=== PATIENT | male | born 1980 | race Caucasian/White ===

== ENCOUNTER 2018-05-30 04:30 | Inpatient (IN) | payer OTHER ==
[2018-05-29 11:57] VITALS: BP 126/70
--- NOTE | 2018-05-29 12:14 | PCM.EKG ---
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
[2018-05-29 12:31] LABS: BASOPHIL # 0.2 10^3/uL (0.0-0.1); BASOPHIL % 1.5 % (0.0-0.2); EOSINOPHIL # 2.4 10^3/uL (0.0-0.2); EOSINOPHIL % 20.8 % (0.0-5.0); HEMOGLOBIN 16.9 g/dL (13.9-16.3); LYMPHOCYTES # 3.2 10^3/uL (1.0-4.8); LYMPHOCYTES % 27.7 % (24.0-44.0); MEAN CELL HGB 29.2 pg (26-34); MEAN CELL HGB CONCENTRATION 34.2 g/dL (33-37); MEAN CORP VOLUME 85.3 fL (78-100); MEAN PLATELET VOLUME 8.7 fL (7.8-11.0); MONOCYTES # 0.6 10^3/uL (0.3-0.8); MONOCYTES % 5.5 % (5.0-12.0); NEUTROPHIL # 5.1 10^3/uL (1.8-7.7); NEUTROPHILS % 44.1 % (41.0-85.0); RED CELL DISTRIBUTION WIDTH 15.5 % (11.5-14.5); WHITE BLOOD CELL 11.4 10^3/uL (4.5-11.0)
[2018-05-29 12:55] LABS: CALCIUM 9.6 mg/dL (8.4-10.5); CARBON DIOXIDE 22.9 mmol/L (20.0-32)
[2018-05-29 15:16] LABS: BASOPHIL 3 % (0-2); DIFFERENTIAL COMMENT NORMAL; EOSINOPHIL 25 % (1-4); LYMPHOCYTE 28 % (25-36); MONOCYTE 3 % (3-9); SEGMENTED NEUTROPHILS 41 % (31-76)
[~2018-05-30] VITALS: Ht 176 cm; Wt 93.9 kg
[2018-05-30] VITALS (10 sets, daily range): BP systolic 102–137; BP diastolic 54–84
[~2018-05-30 04:30] MED LIST: CALC-76 PO; GABA300C10 PO; MULT1TAB52 PO; TRAM-47 PO; [UNRECOGNIZED DRUG - CODE] PO
[2018-05-30] MEDS ORDERED: ANCEF ONE (05:11)
[2018-05-30] MEDS ORDERED: ANCEF 2 GM/D5W 50ML 50 ML IV ONE (05:11)
[2018-05-30] MEDS ORDERED: LACTATED RINGERS 1,000 ML ONE ×2 (05:11→07:22)
[2018-05-30] MEDS ORDERED: NS 100ML 100 ML IV ONE (05:11)
[2018-05-30] MEDS: LACTATED RINGERS 1,000 ML IV SCH ×2 (06:22→19:59)
[2018-05-30] MEDS ORDERED: NAROPIN 0.2% 40 MG/20 ML VIAL ONE (06:56)
[2018-05-30] MEDS ORDERED: DECADRON ONE (06:56)
[2018-05-30] MEDS ORDERED: PRECEDEX IV ONE (06:57)
[2018-05-30] MEDS ORDERED: VERSED ONE (06:57)
[2018-05-30] MEDS ORDERED: LIDOCAINE 2% VIAL ONE ×2 (06:57→07:20)
[2018-05-30] MEDS ORDERED: XYLOCAINE 2%-EPI 1:100,000 ONE (07:19)
[2018-05-30] MEDS ORDERED: SODIUM CHLORIDE IR ONE (07:19)
[2018-05-30] MEDS ORDERED: ZEMURON IV ONE (07:21)
[2018-05-30] MEDS ORDERED: QUELICIN ONE (07:21)
[2018-05-30] MEDS ORDERED: ZOFRAN ONE (07:21)
[2018-05-30] MEDS ORDERED: NEOSTIGMINE ONE (07:21)
[2018-05-30] MEDS ORDERED: DILAUDID ONE (07:21)
[2018-05-30] MEDS ORDERED: SUBLIMAZE ONE (07:21)
[2018-05-30] MEDS ORDERED: DIPRIVAN IV ONE (07:22)
[2018-05-30] MEDS ORDERED: THROMBIN-JMI TP ONE (09:28)
--- NOTE | 2018-05-30 10:43 | HPH ---
ADMIT DATE: 05/30/2018 CHIEF COMPLAINT: Painful right leg. HISTORY OF PRESENT ILLNESS: The patient is a 37-year-old white male who suffered a closed right femur fracture approximately a year ago while working in [place]. He had open reduction and internal fixation with a retrograde femoral nail locked at that time. The patient has continued to complain of pain about the fracture site despite aggressive therapy, weightbearing. Approximately 4-5 months ago, we removed the proximal interlocking screw; however, this did not allow the fracture to heal. He continues to complain of pain with weightbearing about the fracture site. He still smokes about a half a pack of cigarettes a day despite antismoking counseling. He has full range of motion about the knee. 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 He is admitted today for bone grafting of the right femur nonunion. MEDICATIONS: Include naproxen as well as gabapentin. PAST SURGICAL HISTORY: As above. ALLERGIES: States that he is allergic to IBUPROFEN. SOCIAL HISTORY: He smokes about a half a pack of cigarettes a day, drinks on an occasional basis. FAMILY HISTORY: Positive for diabetes, cancer and hypertension. REVIEW OF SYSTEMS: Negative for chest pain, shortness of breath, nausea, vomiting, melena, hematochezia, dysuria, hematuria, fever, chills and weight loss. PHYSICAL EXAMINATION: GENERAL: Shows that he is 5 feet 10 inches, 225 pounds, healthy male, in no acute distress. HEENT: Within normal limits. CHEST: Clear to auscultation. HEART: Regular rate and rhythm. EXTREMITIES: Right femur has a healed incision distally about the knee. His knee goes out into full extension, has 120 degrees of flexion. He has tenderness about the fracture site to palpation. There is no motion at the fracture site with varus and valgus stressing. NEUROLOGIC: He is awake and alert. He is oriented x 3. Cranial nerves 2-12 grossly intact. He has 5/5 strength in all muscle groups of both lower and upper extremities, bilaterally symmetric. IMAGING STUDIES: His x-rays show that he has hypertrophic nonunion with an intramedullary femoral nail that is locked distally in place. ASSESSMENT: Hypertrophic nonunion right femur fracture. PLAN: The patient admitted for bone grafting of the right femur fracture with autograft from the right iliac crest. The risks and hazards of the procedure have been discussed with the patient. He understands the risk involved and wants to proceed as planned. Darek Swenson MD DR: ITALO/gena JOB# [id number]
--- NOTE | 2018-05-30 10:54 | OPH ---
DATE OF SURGERY: 05/30/2018 PREOPERATIVE DIAGNOSIS: Nonunion, right femur fracture. POSTOPERATIVE DIAGNOSIS: Nonunion, right femur fracture. OPERATIVE PROCEDURE: Bone grafting, right femur nonunion. SURGEON: Darek Swenson MD ANESTHESIA: General endotracheal. BLOOD LOSS: 400 mL. DRAINS: None. DESCRIPTION OF INDICATIONS: The patient is a 37-year-old male. He suffered a closed displaced fracture of the distal third of his right femur approximately a year ago while working in [place]. He had ORIF performed with the retrograde femoral nail in [place] at that time . The patient continues to complain of pain about the fracture site despite aggressive physical therapy, weightbearing and other modalities. He has had his proximal interlocking screw removed about 5 months ago. His x-rays show that he has a hypertrophic nonunion about the right distal femur. The patient was taken to the operating room today for bone grafting with autograft from the right iliac crest of the right femoral nonunion. DESCRIPTION OF PROCEDURE: The patient was placed on the operating table in the supine position. A general endotracheal anesthetic was induced without difficulty. The patient was then placed in the left lateral decubitus position. The right lower extremity including the iliac crest was then sterilely prepped and draped. Then the patient had the fracture site identified with the C-arm. Incision was taken laterally through the skin and subcutaneous tissue. The bleeding was controlled with cautery. The IT band was opened in line with the skin incision. The muscle belly was reflected anteriorly and released off the posterior aspect of the femur. The fracture nonunion site was identified. We used a 0.5 inch curved osteotome proximal and distal to the fracture and did extensive feathering of the periosteum laterally, posteriorly and anteriorly. There were no signs of infection. We then irrigated the wound and packed it with a wet sponge and proceeded to harvest iliac bone crest. The patient had an incision made about the anterior iliac crest. The incision was taken through the skin and subcutaneous tissues. The periosteum was then split and elevated over the outer table of the ilium. Using straight and curved osteotomes, we harvested some unicortical bone graft from the outer table of his iliac crest. Once a sufficient amount of bone graft was harvested, then the wounds were copiously irrigated. We put some thrombin-soaked Gelfoam down into the graft site and then closed the soft tissue with 1 Vicryl in interrupted [id number] manner. The subcutaneous was closed with 2-0 Monocryl in an interrupted manner and the skin was closed with oscar. We then returned to the fracture site. The wounds were irrigated. The bone graft was then placed about the nonunion site. The patient then had the IT band closed with a 1 Vicryl in interrupted [id number] manner. The subcutaneous was closed with 2-0 Monocryl barbed in a running manner and the skin was closed with oscar. A large Aquacel with a compressive dressing was placed about the femoral incision. The iliac crest incision was covered with a small Aquacel dressing. The patient was extubated in the operating room and sent to recovery in stable condition. Darek Swenson MD DR: ITALO/gena JOB# [id number]
[2018-05-30] MEDS ORDERED: XOPENEX IH PRN (11:00)
[2018-05-30] MEDS ORDERED: LACTATED RINGERS 1,000 ML IV SCH (11:00)
[2018-05-30] MEDS ORDERED: SUBLIMAZE IV PRN (11:00)
[2018-05-30] MEDS: OYSTER SHELL 500-VIT D3 200 TB PO SCH (11:00)
[2018-05-30] MEDS ORDERED: VALIUM PO PRN (11:00)
[2018-05-30] MEDS ORDERED: ULTRAM PO PRN (11:00)
[2018-05-30] MEDS ORDERED: CEPACOL SORE THROAT LOZENGE MM PRN (11:00)
[2018-05-30] MEDS: LACTATED RINGERS 1,000 ML SCH ×2 (11:00→21:00)
[2018-05-30] MEDS: DILAUDID IV PRN ×5 (11:00→22:14)
[2018-05-30] MEDS ORDERED: REGLAN IV PRN (11:00)
[2018-05-30] MEDS ORDERED: ZOFRAN IV PRN ×2 (11:00)
[2018-05-30] MEDS: THERA PO SCH (11:06)
--- NOTE | 2018-05-30 11:20 | NUR ---
Arrival Patient arrived on unit via hospital bed to room 338. Post op femur fx. Report received from ANGLE Miner. Assumed care of patient. Patient placed on special vitals. Educated pt on importance of pain control, pt verbalized understanding. Educated pt on use of call light, pt verbalized understanding. Will continue to monitor. Call light within reach.
[2018-05-30] MEDS: NEURONTIN PO SCH ×2 (15:28→20:52)
--- NOTE | 2018-05-30 18:12 | NUR ---
Dr. Messi Swenson at bedside. New orders received for ice pack to right pelvis for pain. RBVO
[2018-05-30 18:20] LABS: HEMOGLOBIN 14.7 g/dL (13.9-16.3); MEAN CELL HGB 28.7 pg (26-34); MEAN CELL HGB CONCENTRATION 33.1 g/dL (33-37); MEAN CORP VOLUME 86.7 fL (78-100); MEAN PLATELET VOLUME 8.5 fL (7.8-11.0); RED CELL DISTRIBUTION WIDTH 15.2 % (11.5-14.5); WHITE BLOOD CELL 19.8 10^3/uL (4.5-11.0)
--- NOTE | 2018-05-30 19:00 | NUR ---
report received report from offgoing shift
[2018-05-30] MEDS: ULTRAM PO PRN (19:57)
[2018-05-31] VITALS: BP 140/90
[2018-05-31] MEDS: ULTRAM PO PRN ×3 (00:15→08:47)
[2018-05-31] MEDS ORDERED: TUMS PO PRN (01:30)
--- NOTE | 2018-05-31 01:42 | NUR ---
surgical site surgical site has dressing. clean dry and intact. Pt. complained of pain of 5. Pain meds given as ordered.
[2018-05-31 04:00] VITALS: BP 123/73
[2018-05-31 05:08] LABS: HEMOGLOBIN 14.1 g/dL (13.9-16.3); MEAN CELL HGB 29.1 pg (26-34); MEAN CELL HGB CONCENTRATION 33.3 g/dL (33-37); MEAN CORP VOLUME 87.4 fL (78-100); MEAN PLATELET VOLUME 8.8 fL (7.8-11.0); WHITE BLOOD CELL 18.2 10^3/uL (4.5-11.0)
[2018-05-31] MEDS: LACTATED RINGERS 1,000 ML SCH (06:14)
[2018-05-31 08:40] VITALS: BP 119/63
[2018-05-31] MEDS: THERA PO SCH (08:47)
[2018-05-31] MEDS: NEURONTIN PO SCH (08:47)
[2018-05-31] MEDS: OYSTER SHELL 500-VIT D3 200 TB PO SCH (08:48)
--- NOTE | 2018-05-31 08:49 | NUR ---
Physical therapy Patient ambulating hallway with physical therapy. Steady gait noted. Patient able to bear weight on right foot.
[2018-05-31] MEDS ORDERED: PEPCID PO SCH (09:00)
[2018-05-31] MEDS ORDERED: COLACE PO SCH (09:00)
--- NOTE | 2018-05-31 09:36 | NUR ---
DISCHARGE PLAN CM VISITED WITH PT AND HE CURRENTLY LIVES AT HOME WITH HIM MOM. PT STATES HE IS INDEPENDENT OF ADLS AT HOME WITH THE USE OF A CANE AND IS CURRENTLY SEEING [facility] AN OUTPATIENT. 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 DISCHARGE GOAL IS FOR PT TO D/C HOME WITH MOM. PT DENIES FURTHER NEEDS AT THIS TIME.
--- NOTE | 2018-05-31 10:40 | PRM.PN ---
Subjective Subjective Date: May 31, 2018 Time: 10:38 Subjective Pain ok Some N/V during the night but resolved now Ate breakfast this am ok VSS Dressings dry NVM+ HGB 14 Will dc Patient History: Alzheimer's disease MATERNAL GRANDMOTHER Diabetes mellitus MATERNAL GRANDMOTHER No known health problems 32 MOTHER G8 BROTHER G8 SISTER G8 SISTER V19 CHILD V19 CHILD Unknown 33 FATHER G8 BROTHER No Family History of: Asthma Cerebrovascular disorder Chronic obstructive pulmonary disease Congestive heart failure Diabetes insipidus Hypertension Parkinson's disease VTE VTE Risk Total Score: 2 VTE Risk Score VTE Risk: Score 0-1 = Low Risk (Aggressive mobilization; early ambulation; no VTE prophylaxis required) Score 2: Moderate Risk (Intermittent/Pneumatic Compression Device OR Lovenox/Heparin/Coumadin) Score 3-4: High Risk (Intermittent/Pneumatic Compression Device AND Lovenox/Heparin/Coumadin) Score > or =5: Highest Risk (Intermittent/Pneumatic Compression Device AND Lovenox/Heparin/Coumadin) Review of Systems Allergies: Coded Allergies: ibuprofen (Verified Allergy, Severe, SEVERE N/V, 05/29/18) Influenza Virus Vaccines (Verified Allergy, Unknown, MASSIVE ABD CRAMPS, DOUBLED OVER, 05/29/18) Scheduled Calcium Carb & Cit/Vitamin D3 (Calcium + D3 Er Tablet), 2 EACH PO DAILY24, ( Reported) Gabapentin (Gabapentin), 1 CAP PO TID, (Reported) Multivitamin (Multivitamins), 1 TAB PO DAILY, (Reported) Scheduled PRN Naproxen Sodium (Naproxen Sodium), 1 TAB PO BID PRN for PAIN, (Reported) Discontinued Medications Tramadol Hcl (Ultram), 1 TAB PO Q6 PRN for PAIN, (Reported) Discontinued Reason: No Longer Taking Objective Vitals and I/O Vital Sign - Last 24 Hours 05/30/18 05/30/18 05/30/18 05/30/18 10:40 10:55 11:10 11:30 Temp 98.6 98.7 97.9 98.6 98.7 97.9 Pulse 73 81 75 Resp 18 18 18 B/P (MAP) 122/78 (93) 126/73 (90) 118/75 (89) Pulse Ox 99 96 96 O2 Delivery Non-Rebreather Nasal Canula Nasal Canula Room Air O2 Flow Rate 10 3 3 05/30/18 05/30/18 05/30/18 05/30/18 15:05 15:06 17:40 19:00 Temp 97.6 99.3 97.6 99.3 Pulse 78 73 75 Resp 16 16 18 1 B/P (MAP) 117/83 (94) 102/54 (70) Pulse Ox 95 95 98 95 O2 Delivery Nasal Cannula Nasal Canula O2 Flow Rate 2.50 3.00 FiO2 30 05/30/18 05/30/18 05/31/18 05/31/18 19:22 21:31 00:00 04:00 Temp 98.1 97.5 98.1 97.5 Pulse 73 86 85 Resp 18 18 18 B/P (MAP) 140/90 (107) 123/73 (90) Pulse Ox 98 92 93 O2 Delivery Nasal Cannula Nasal Cannula Room Air O2 Flow Rate 2.00 2.00 FiO2 28 05/31/18 05/31/18 08:40 09:50 Temp 98.0 98.0 Pulse 70 Resp 18 B/P (MAP) 119/63 (81) Pulse Ox 91 O2 Delivery Nasal Canula Room Air O2 Flow Rate 2.00 Intake and Output 05/30/18 05/30/18 05/31/18 15:01 23:01 07:01 Intake Total 3700 ml 240 ml 729 ml Output Total 500 ml 1720 ml Balance 3700 ml -260 ml -991 ml Course Sepsis Screening Results: Posi: NEGATIVE Sepsis Qualifier/Stage: NO DEFINITE RISK Vitals & review Data Vital Sign - Last 24 Hours 05/30/18 05/30/18 05/30/18 05/30/18 10:40 10:55 11:10 11:30 Temp 98.6 98.7 97.9 98.6 98.7 97.9 Pulse 73 81 75 Resp 18 18 18 B/P (MAP) 122/78 (93) 126/73 (90) 118/75 (89) Pulse Ox 99 96 96 O2 Delivery Non-Rebreather Nasal Canula Nasal Canula Room Air O2 Flow Rate 10 3 3 05/30/18 05/30/18 05/30/18 05/30/18 15:05 15:06 17:40 19:00 Temp 97.6 99.3 97.6 99.3 Pulse 78 73 75 Resp 16 16 18 1 B/P (MAP) 117/83 (94) 102/54 (70) Pulse Ox 95 95 98 95 O2 Delivery Nasal Cannula Nasal Canula O2 Flow Rate 2.50 3.00 FiO2 30 05/30/18 05/30/18 05/31/18 05/31/18 19:22 21:31 00:00 04:00 Temp 98.1 97.5 98.1 97.5 Pulse 73 86 85 Resp 18 18 18 B/P (MAP) 140/90 (107) 123/73 (90) Pulse Ox 98 92 93 O2 Delivery Nasal Cannula Nasal Cannula Room Air O2 Flow Rate 2.00 2.00 FiO2 28 05/31/18 05/31/18 08:40 09:50 Temp 98.0 98.0 Pulse 70 Resp 18 B/P (MAP) 119/63 (81) Pulse Ox 91 O2 Delivery Nasal Canula Room Air O2 Flow Rate 2.00 Intake and Output 05/30/18 05/30/18 05/31/18 15:01 23:01 07:01 Intake Total 3700 ml 240 ml 729 ml Output Total 500 ml 1720 ml Balance 3700 ml -260 ml -991 ml Laboratory Tests Test 05/29/18 12:05 05/29/18 12:48 05/30/18 18:14 05/31/18 04:39 White Blood Count 11.4 10^3/uL 19.8 10^3/uL 18.2 10^3/uL Red Blood Count 5.79 10^6/uL 5.12 10^6/uL 4.84 10^6/uL Hemoglobin 16.9 g/dL 14.7 g/dL 14.1 g/dL Hematocrit 49.4 % 44.4 % 42.3 % Mean Corpuscular Volume 85.3 fL 86.7 fL 87.4 fL Mean Corpuscular Hemoglobin 29.2 pg 28.7 pg 29.1 pg Mean Corpuscular Hemoglobin Concent 34.2 g/dL 33.1 g/dL 33.3 g/dL Red Cell Distribution Width 15.5 % 15.2 % 15.0 % Platelet Count 333 10^3/uL 300 10^3/uL 302 10^3/uL Mean Platelet Volume 8.7 fL 8.5 fL 8.8 fL Neutrophils (%) (Auto) 44.1 % Lymphocytes (%) (Auto) 27.7 % Monocytes (%) (Auto) 5.5 % Neutrophils # (Auto) 5.1 10^3/uL Lymphocytes # (Auto) 3.2 10^3/uL Monocytes # (Auto) 0.6 10^3/uL Absolute Immature Granulocyte (auto 0.04 10^3 u/L Eosinophils % 20.8 % Basophils % 1.5 % Basophils # 0.2 10^3/uL Eosinophil Count 2.4 10^3/uL Sodium Level 139 mmol/L Potassium Level 3.5 mmol/L Chloride Level 104.0 mmol/L Carbon Dioxide Level 22.9 mmol/L Anion Gap 15.6 Blood Urea Nitrogen 14 mg/dL Creatinine 0.84 mg/dL Estimated GFR () 125.1 BUN/Creatinine Ratio 16.0 Glucose Level 135 mg/dL Calcium Level 9.6 mg/dL Total Bilirubin 0.3 mg/dL Aspartate Amino Transf (AST/SGOT) 12 U/L Alanine Aminotransferase (ALT/SGPT) 27 U/L Alkaline Phosphatase 106 U/L Total Protein 7.4 g/dL Albumin 4.0 g/dL Globulin 3.4 Percent Immature Gran (Cell Imm) 0.40 % Differential Total Cells Counted 100 #CELLS Segmented Neutrophils 41 % Lymphocytes 28 % Monocytes 3 % Absolute Eosinophils (Manual) 25 % Basophils 3 % Differential Comment NORMAL Platelet Estimate ADEQUATE Platelet Morphology NORMAL Blood Morphology Comment NORMAL MORPHOLOGY Current Medications Medications (Trade) Dose Ordered Sig/Darian PRN Reason Start Time Stop Time Status Last Admin Calcium Carbonate/ Glycine (Tums) 1,000 mg Q4HR PRN REFLUX 05/31/18 01:30 06/30/18 01:29 05/31/18 01:29 Calcium/Vitamin D (Oyster Shell 500-Vit D3 200 Tb) 2 each DAILY24 05/30/18 11:00 06/29/18 10:59 05/31/18 08:48 Diazepam (Valium) 5 mg Q6HR PRN MUSCLE SPASM 05/30/18 11:00 06/29/18 10:59 Docusate Sodium (Colace) 100 mg DAILY 05/31/18 09:00 06/30/18 08:59 05/31/18 08:47 Famotidine (Pepcid) 20 mg DAILY 05/31/18 09:00 06/30/18 08:59 05/31/18 08:47 Gabapentin (Neurontin) 300 mg TID 05/30/18 15:00 06/29/18 14:59 05/31/18 08:47 Hydromorphone HCl (Dilaudid) 3 mg Q4H PRN PAIN 8-10 05/30/18 11:00 06/29/18 10:59 05/30/18 22:14 Levalbuterol HCl (Xopenex) 1.25 mg OT PRN WHEEZING 05/30/18 11:00 06/04/18 10:59 Metoclopramide HCl (Reglan) 10 mg PRN PRN NAUSEA / VOMITING 05/30/18 11:00 06/04/18 10:59 Ondansetron HCl (Zofran) 4 mg Q4H PRN NAUSEA / VOMITING 05/30/18 11:00 06/29/18 10:59 05/30/18 22:51 Throat Lozenges (Cepacol Sore Throat Lozenge) 1 each PRN PRN SORE THROAT 05/30/18 11:00 06/29/18 10:59 Tramadol HCl (Ultram) 50 mg Q4HR PRN MILD PAIN 05/30/18 11:00 06/29/18 10:59 Tramadol HCl (Ultram) 100 mg Q4HR PRN SEVERE PAIN 05/30/18 11:00 06/29/18 10:59 05/31/18 08:47 LANDRY OTTO MD May 31, 2018 10:40
[2018-05-31 11:45] VITALS: BP 119/63
--- NOTE | 2018-05-31 11:45 | NUR ---
Discharge Discharge instructions given to patient. Educated pt on importance of follow up apt with Dr. Swenson, pt verbalized understanding. Educated pt on tramadol and side effects related, pt verbalized understanding. Medication called into [facility] pharmacy per Dr. Swenson order and pt request. Surgical dressing to right hip and knee c/d/i. Educated pt to keep dressing dry and intact and cover with a trash bag when showering, pt verbalized understanding. Answered all of patients questions. Patient transferred off unit via wheelchair to private vehicle. No s/s of distress noted.
--- NOTE | 2018-05-31 14:44 | DSH ---
DATE OF DISCHARGE: 05/31/2018 ADMITTING DIAGNOSIS: Nonunion, right femur fracture. DISCHARGE DIAGNOSIS: Nonunion, right femur fracture. OPERATIVE PROCEDURE DATE: 05/30/2018. PROCEDURE PERFORMED: Bone grafting to the right femoral nonunion. COMPLICATIONS: None. CONSULTATIONS: None. SUMMARY OF ADMISSION: A 37-year-old male who suffered a fracture of the distal third of his right femur approximately a year ago in a work comp injury. He had retrograde nailing with an interlocking nail. Despite weightbearing as well as removal of his proximal interlocking nail as well as therapy and time, the patient developed a hypertrophic nonunion that was painful. Because of continued pain, he was taken to the operating room for bone grafting. The patient was taken to the operating room on 05/30/2018. He had bone graft harvest taken from his iliac crest and applied to the nonunion site about the right femur. Postoperatively, the patient has done well. He is able to transfer in and out of bed independently and walk at least 100 feet with his crutches. His neurovascular exam is normal. His dressings are dry. The patient is on a regular diet, which he is tolerating well. His pain is satisfactorily controlled with tramadol. The patient will be discharged today on 05/31/2018. He will be instructed to use his crutches and weightbear as tolerated. He will leave his dressings intact. We will call him in a prescription for tramadol. I will see him in my office in 5 days. Darek Swenson MD DR: ITALO/gena JOB# [id number]
== END 2018-05-31 11:45 | disposition home or self-care (01) | DRG 482 ==
LOC: MS 04:30 → EDPENDDISTM 05-31 11:45
PROVIDERS: ADMIT Orthopaedic Surgery; ATTEND Orthopaedic Surgery
PROC: 0QB20ZZ Excision of Right Pelvic Bone, Open Approach (ICD-10-PCS; 2018-05-30)
PROC: 0QUB07Z Supplement Right Lower Femur with Autologous Tissue Substitute, Open Approach (ICD-10-PCS; principal; 2018-05-30 08:16)
DX: S72.491K Other fracture of lower end of right femur, subsequent encounter for closed fracture with nonunion (principal); X58.XXXD Exposure to other specified factors, subsequent encounter; F17.210 Nicotine dependence, cigarettes, uncomplicated; Z88.8 Allergy status to other drugs, medicaments and biological substances; Z88.7 Allergy status to serum and vaccine; Z82.49 Family history of ischemic heart disease and other diseases of the circulatory system; Z83.3 Family history of diabetes mellitus; Z80.8 Family history of malignant neoplasm of other organs or systems; Z81.8 Family history of other mental and behavioral disorders
CPT/HCPCS: 36415; 64447; 76000; 80053; 85025; 85027; 93005; 97161; A4217; G0378; J0330; J0690; J1100; J1170; J2001; J2250; J2405; J2710; J2795; J3010; J3490; J7050; J7120; 97116-GP

== ENCOUNTER → 2018-11-22 | Outpatient (CLI) | payer OTHER ==
--- NOTE | 2018-11-22 16:04 | DIREP ---
PROCEDURE:CT LOWER EXTREMITY-RT W/O COMPARISON:None. INDICATIONS:FRACTURE OF DISTAL END OF RIGHT FEMUR WITH DELAYED HEALING TECHNIQUE:Axial sections through the right femur were performed with sagittal and coronal reconstructions from source images. No contrast was administered. FINDINGS: BONES:Long intramedullary femoral robert across a distal diaphysis fracture. At the fracture site there is cortical thickening, periosteal elevation and posteriorly some bridging callus without mature osseous remodeling. Majority the fracture line remains open. Subcortical lucencies at the medial lateral femoral condyles consistent with degenerative changes. Similar changes in the patella. JOINTS:Normal SOFT TISSUES:Normal OTHER:Negative. CONCLUSION:ORIF status post distal femoral fracture. At the fracture site there is some posterior bridging callus without mature osseous remodeling. Majority the fracture line is open. Dictated by: Boubacar Dodd M.D. on 11/22/2018 at 04:00 PM
== END | disposition home or self-care (01) ==
LOC: RAD 13:57
PROVIDERS: ATTEND Psychiatry & Neurology Psychiatry
DX: S72.401G Unspecified fracture of lower end of right femur, subsequent encounter for closed fracture with delayed healing (principal); X58.XXXD Exposure to other specified factors, subsequent encounter
CPT/HCPCS: 73700